=== PATIENT | male | born 1970 | race Caucasian/White ===

== ENCOUNTER 2023-06-12 23:40 | Emergency (ER) | payer OTHER ==
[2023-06-13] MEDS ORDERED: Lidocaine 1% 5 ML VIAL INJECT ONE (01:05)
[2023-06-13] MEDS ORDERED: Bacitracin Oint 1 GM U/D Packet TOP ONE (01:18)
== END 2023-06-13 01:41 | disposition home or self-care (01) ==
LOC: JP.ED 23:40
DX: S60.551A Superficial foreign body of right hand, initial encounter (principal); F17.210 Nicotine dependence, cigarettes, uncomplicated; W45.8XXA Other foreign body or object entering through skin, initial encounter
CPT/HCPCS: 99282